=== PATIENT | female | born 1955 | race Caucasian/White ===

== ENCOUNTER 2021-05-08 09:45 | Emergency (ER) | payer BC ==
--- NOTE | 2021-05-08 10:50 | EDM.PDOC ---
ED HPI GENERAL MEDICAL PROBLEM - General Chief Complaint: Respiratory Problem Stated Complaint: POSSIBLE COVID Time Seen by Provider: 05/08/21 10:30 Source of Information: Reports: Patient History Limitations: Reports: No Limitations - History of Present Illness INITIAL COMMENTS - FREE TEXT/NARRATIVE: 65-year-old female who is vaccinated with maternal vaccine for Covid, has some mild respiratory cough and congestion and her is positive for Covid. For the last 2 to 3 days she has had a mild increase in cough but is stable. She just wants to be checked and discuss if there is anything else that needs to be done. No fevers or chills. Onset: Gradual Duration: Day(s): (2 to 3 days of symptoms) Associated Symptoms: Reports: Cough Generalized Pain Score (Numeric/FACES): 5 - Related Data Allergies Allergy/AdvReac Type Severity Reaction Status Date / Time No Known Allergies Allergy Verified 05/08/21 10:23 Home Meds: Home Meds Levothyroxine 112 mcg PO ACBREAKFAST 05/08/21 [History] Sertraline [Zoloft] 100 mg PO DAILY 05/08/21 [History] lisinopriL [Lisinopril] 5 mg PO DAILY 05/08/21 [History] Past Medical History HEENT History: Reports: None Cardiovascular History: Reports: Hypertension Respiratory History: Reports: None Gastrointestinal History: Reports: None Genitourinary History: Reports: None WATCH REPAIRER History: Reports: Dysfunctional Uterine Bleeding, Other WATCH REPAIRER History: ablation Musculoskeletal History: Reports: Arthritis, Fracture Other Musculoskeletal History: right arm Neurological History: Reports: None Psychiatric History: Reports: Anxiety Endocrine/Metabolic History: Reports: Hypothyroidism Hematologic History: Reports: None Oncologic (Cancer) History: Reports: None Dermatologic History: Reports: None - Infectious Disease History Infectious Disease History: Reports: Chicken Pox - Past Surgical History HEENT Surgical History: Reports: Oral Surgery Cardiovascular Surgical History: Reports: None GI Surgical History: Reports: None Social & Family History - Tobacco Use Tobacco Use Status *Q: Never Tobacco User - Caffeine Use Caffeine Use: Reports: Coffee - Recreational Drug Use Recreational Drug Use: No ED ROS GENERAL - Review of Systems Review Of Systems: See Below Constitutional: Reports: Chills, Malaise HEENT: Reports: Throat Pain (Mild sore throat) Respiratory: Reports: Cough GI/Abdominal: Denies: Nausea, Vomiting Skin: Reports: No Symptoms ED EXAM, GENERAL - Physical Exam Exam: See Below Exam Limited By: No Limitations General Appearance: Alert, No Apparent Distress Head: Atraumatic Neck: No: Lymphadenopathy (R), Lymphadenopathy (L) Respiratory/Chest: No Respiratory Distress, Lungs Clear Cardiovascular: Regular Rate, Rhythm Course - Vital Signs Last Recorded V/S: Last Vital Signs Temp 98.2 F 05/08/21 10:19 Pulse 89 05/08/21 10:19 Resp 16 05/08/21 10:19 BP 141/84 H 05/08/21 10:19 Pulse Ox 99 05/08/21 10:19 - Orders/Labs/Meds Labs: Laboratory Tests 05/08/21 Range/Units 10:49 SARS-CoV-2 RNA ([facility]) Positive H (NEGATIVE) - Re-Assessments/Exams Free Text/Narrative Re-Assessment/Exam: 05/08/21 11:06 A Covid test was obtained. 05/08/21 11:44 Covid is positive, patient will be treated with antibiotic therapy along with her . Departure - Departure Time of Disposition: 12:13 Disposition: Home, Self-Care 01 Clinical Impression: COVID-19 - Discharge Information Instructions: COVID-19 Frequently Asked Questions, COVID-19, COVID-19: How to Protect Yourself and Others - CDC Referrals: PCP,Unknown [Primary Care Provider] - Forms: ED Department Discharge, ED Department Discharge Care Plan Goals: You will receive antibiotic therapy as discussed. Recheck if worsening such as difficulty breathing or other concerns. Sepsis Event Note (ED) - Focused Exam Vital Signs: Vital Signs Temp Pulse Resp BP Pulse Ox 05/08/21 10:19 98.2 F 89 16 141/84 H 99
== END 2021-05-08 12:14 | disposition home or self-care (01) ==
LOC: JP.ED 09:45
DX: U07.1 COVID-19 (principal); I10 Essential (primary) hypertension; E03.9 Hypothyroidism, unspecified; Z79.899 Other long term (current) drug therapy
CPT/HCPCS: 99283; U0002